=== PATIENT | female | born 1965 | race Caucasian/White ===

== ENCOUNTER → 2016-09-27 | Outpatient (CLI) | payer BC ==
[~2016-09-27] MED LIST: ALLEGRA ALLERG180 MG PO; EDLUAR10 MG SL
== END ==
LOC: MC.RAD 10:01
DX: Z12.31 Encounter for screening mammogram for malignant neoplasm of breast (principal)

== ENCOUNTER → 2018-06-12 | Outpatient (CLI) | payer BC | LOC: COL.RAD 06-02 07:30 | DX: R91.1 Solitary pulmonary nodule (principal) | CPT/HCPCS: Q9967 ==

== ENCOUNTER → 2018-06-23 | Outpatient (CLI) | payer BC | LOC: MC.RAD 09:15 | DX: Z12.31 Encounter for screening mammogram for malignant neoplasm of breast (principal) ==

== ENCOUNTER → 2019-01-11 | Outpatient (CLI) | payer BC | LOC: COL.RAD 14:00 | DX: R91.1 Solitary pulmonary nodule (principal) ==

== ENCOUNTER → 2020-07-02 | Outpatient (CLI) | payer BC | LOC: MC.RAD 13:46 | DX: Z12.31 Encounter for screening mammogram for malignant neoplasm of breast (principal) ==

== ENCOUNTER → 2020-08-27 | Outpatient (CLI) | payer BC | LOC: COL.RAD 13:01 | DX: M25.571 Pain in right ankle and joints of right foot (principal) | CPT/HCPCS: J3301; Q9967 ==

== ENCOUNTER 2021-01-10 05:57 | Emergency (ER) | payer BC ==
[~2021-01-10] VITALS: Ht 165.1 cm; Wt 74.5 kg
[2021-01-10 06:15] VITALS: TEMP 98.5
[2021-01-10 07:23] VITALS: BP 107/66; PULSE 78
== END 2021-01-10 07:23 | disposition home or self-care (01) ==
LOC: COL.ER 05:57
DX: Z48.01 Encounter for change or removal of surgical wound dressing (principal)

== ENCOUNTER → 2021-04-29 | Outpatient (CLI) | payer BC | LOC: COL.RAD 08:08 | DX: K76.0 Fatty (change of) liver, not elsewhere classified (principal) ==

== ENCOUNTER → 2022-11-19 | Outpatient (CLI) | payer BC ==
[~2022-11-19] MED LIST changes: +Albuterol 0.083% Neb Soln 2.5 MG/3 ML UD IH ONE
== END ==
LOC: COL.PUL 08:00
DX: J45.909 Unspecified asthma, uncomplicated (principal)